=== PATIENT | female | born 2000 | race Caucasian/White ===

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

== ENCOUNTER 2018-02-10 09:48 | Observation (INO) | payer OTHER ==
[2018-02-10] MEDS ORDERED: IV RINGERS,LACTATED 1000ML 1,000 ML IV (10:40)
== END 2018-02-10 11:55 | disposition home or self-care (01) ==
LOC: 3 SO LND 09:48
DX: O99.89 Other specified diseases and conditions complicating pregnancy, childbirth and the puerperium (principal); O26.893 Other specified pregnancy related conditions, third trimester; M54.9 Dorsalgia, unspecified; R10.9 Unspecified abdominal pain; J02.9 Acute pharyngitis, unspecified; Z3A.30 30 weeks gestation of pregnancy
CPT/HCPCS: G0378; G0379

== ENCOUNTER 2018-02-11 21:35 | Observation (INO) | payer OTHER ==
[2018-02-11] MEDS ORDERED: IV RINGERS,LACTATED 1000ML 1,000 ML IV ×2 (21:45)
[2018-02-11] MEDS ORDERED: ACETAMINOPHEN 325 MG TABLET. PO ×2 (21:45)
[2018-02-11 22:13] LABS: BILIRUBIN,URINE NEGATIVE (NEG); CLARITY,URINE CLEAR; GLUCOSE,URINE NEGATIVE (NEG); NITRITE,URINE NEGATIVE (NEG); PROTEIN,URINE NEGATIVE (NEG-TRACE)
[2018-02-11 22:17] LABS: AMPHETAMINE/METHAMPHETAMINE NEG (NEG); BARBITURATES NEG (NEG); BENZODIAZEPINES NEG (NEG); CANNABINOIDS NEG (NEG); COCAINE NEG (NEG); ETHANOL, URINE NEG (NEG); METHADONE NEG (NEG); OPIATES NEG (NEG); PHENCYCLIDINE NEG (NEG)
[2018-02-11 22:19] LABS: COLOR,URINE STRAW
[2018-02-11 22:20] LABS: BACTERIA,URINE MODERATE /HPF (0-FEW); RBC,URINE RARE /HPF (0-2); SQUAMOUS EPITHELIAL CELL,UR FEW /LPF; WBC,URINE RARE /HPF (0-4)
[2018-02-11] MEDS: ACETAMINOPHEN 500 MG TABLET PO ×2 (22:36)
== END 2018-02-11 23:39 | disposition home or self-care (01) ==
LOC: 3 SO LND 21:35
DX: Z34.93 Encounter for supervision of normal pregnancy, unspecified, third trimester (principal); Z3A.30 30 weeks gestation of pregnancy; Z79.899 Other long term (current) drug therapy
CPT/HCPCS: 80307; 81001; 87086; G0378; G0379

== ENCOUNTER 2018-02-19 12:22 | Emergency (ER) | payer OTHER | END 2018-02-19 13:34 | disposition home or self-care (01) | LOC: ER 12:22 | DX: O26.893 Other specified pregnancy related conditions, third trimester (principal); S60.561A Insect bite (nonvenomous) of right hand, initial encounter; O99.513 Diseases of the respiratory system complicating pregnancy, third trimester; J45.909 Unspecified asthma, uncomplicated; G43.909 Migraine, unspecified, not intractable, without status migrainosus; Z3A.31 31 weeks gestation of pregnancy; Z88.8 Allergy status to other drugs, medicaments and biological substances | CPT/HCPCS: 99281 ==

== ENCOUNTER → 2018-02-25 | Outpatient (CLI) | payer OTHER ==
[~2018-02-25] MED LIST: AMOX1TAB61 PO; CETI1TAB7 PO; DOCU100C28 PO; FAMO40TA57 PO; FLUT9.9S NS; IBUP800T19 PO; KETO5DRO4 EACHEYE; MELA3TAB2 PO; MELO15TA23 PO; OMEP20TA8 PO; ONDA4TAB10 SL; OXYC-323 PO; PRED50TA PO; PROAIR HFA8.5 GM INH; TRIA15CR TP
[2018-02-25 10:28] LABS: BASO % 0 % (0-3); EOS # 0.1 x10^3/uL (0.0-0.7); EOS % 1 % (0-3); HEMATOCRIT 30.9 % (36.0-47.0); HEMOGLOBIN 10.7 g/dL (12.0-15.5); LYMPH # 2.2 x10^3/uL (1.0-4.8); LYMPH % 22 % (24-48); MEAN CORPUSCULAR HEMOGLOBIN 30 pg (25-35); MEAN CORPUSCULAR HGB CONC 35 g/dL (31-37); MEAN CORPUSCULAR VOLUME 87 fL (79-100); MONO # 0.6 x10^3/uL (0.0-1.1); MONO % 6 % (0-9); NEUT # 7.4 x10^3uL (1.8-7.7); NEUT % 71 % (31-73); PLATELET COUNT 371 x10^3/uL (140-400); RED BLOOD COUNT 3.54 x10^6/uL (3.50-5.40); RED CELL DISTRIBUTION WIDTH 13.1 % (11.5-14.5); WHITE BLOOD COUNT 10.4 x10^3/uL (4.0-11.0)
[2018-02-25 12:25] VITALS: BP 102/68
== END | disposition home or self-care (01) ==
LOC: LAB 09:51
PROVIDERS: ATTEND Obstetrics & Gynecology
DX: O36.0130 Maternal care for anti-D [Rh] antibodies, third trimester, not applicable or unspecified (principal); O26.893 Other specified pregnancy related conditions, third trimester; Z3A.31 31 weeks gestation of pregnancy; Z79.899 Other long term (current) drug therapy
CPT/HCPCS: 36415; 82947; 82950; 85025; 86850; 86900; 86901; 96372; J2791

== ENCOUNTER 2018-03-29 16:19 | Observation (INO) | payer OTHER ==
[2018-02-25 12:25] VITALS: BP 102/68
[~2018-03-29 16:19] MED LIST changes: -IBUP800T19 PO
[2018-03-29 16:54] LABS: BILIRUBIN,URINE NEGATIVE (NEG); CLARITY,URINE CLEAR; COLOR,URINE YELLOW; NITRITE,URINE NEGATIVE (NEG); PROTEIN,URINE NEGATIVE (NEG-TRACE); UROBILINOGEN,URINE 0.2 mg/dL (0.2 mg/dL)
[2018-03-29 17:08] LABS: RBC,URINE OCC /HPF (0-2)
[2018-03-29 17:09] LABS: BACTERIA,URINE MODERATE /HPF (0-FEW); SQUAMOUS EPITHELIAL CELL,UR MOD /LPF
== END 2018-03-29 17:41 | disposition home or self-care (01) ==
LOC: 3 SO LND 16:19
PROVIDERS: ADMIT Obstetrics & Gynecology; ATTEND Obstetrics & Gynecology
DX: O26.893 Other specified pregnancy related conditions, third trimester (principal); O99.89 Other specified diseases and conditions complicating pregnancy, childbirth and the puerperium; R10.30 Lower abdominal pain, unspecified; M54.9 Dorsalgia, unspecified; Z3A.36 36 weeks gestation of pregnancy
CPT/HCPCS: 81001; 87086; G0378; G0379